=== PATIENT | female | born 1935 | race Caucasian/White ===

== ENCOUNTER 2022-11-30 12:01 | Inpatient (IN) | payer OTHER, MEDICARE ==
[2022-11-30] MEDS ORDERED: Senokot S 8.6-50 MG TAB PO PRN (15:55)
[2022-11-30] MEDS ORDERED: Bisacodyl 5 MG TAB PO PRN (15:55)
[2022-11-30] MEDS ORDERED: Ondansetron ODT 4 MG TAB SL PRN (15:55)
[2022-11-30] MEDS ORDERED: Dextrose 50% Abboject 50 ML SYRINGE SLOW IVP PRN (15:57)
[2022-11-30] MEDS ORDERED: HumaLOG 300 UNITS/3 ML VIAL SC PRN ×2 (15:57)
[2022-11-30] MEDS ORDERED: Glucagon 1 MG/ML KIT IM PRN (15:57)
[2022-11-30] MEDS ORDERED: Artificial Tear Sol 15 ML BOT EA EYE PRN (16:39)
[2022-11-30] MEDS ORDERED: Melatonin 3 MG TAB PO SCH (21:00)
[2022-11-30] MEDS ORDERED: Brimonidine Tartrate 0.2% Ophth Soln 5 ml Bottle R EYE SCH (21:00)
[2022-11-30] MEDS: Calcium Carbonate 600 MG + Vit D TAB PO SCH (23:06)
[2022-11-30] MEDS: Brimonidine Tartrate 0.2% Ophth Soln 5 ml Bottle EA EYE SCH (23:07)
[2022-11-30] MEDS: Acetaminophen 325 MG TAB PO PRN (23:35)
[2022-12-01 05:22] LABS: #Basophils 0.1 thou/uL (0.0-0.2); #Eosinphils 0.2 thou/uL (0.0-0.7); #Monocytes 0.7 thou/uL (0.11-0.59); #Neutrophils 3.4 thou/uL (1.40-6.50); %Basophils 1.2 % (0.0-1.0); %Eosinophils 3.9 % (0.0-10.0); %Lymphocytes 18.5 % (21.0-51.0); %Monocytes 13.6 % (0.0-10.0); %Neutrophils 62.8 % (42.0-75.0); Hematocrit 38.4 % (36.0-47.0); Mean Corpuscular Hemoglobin 33.4 pg (27.0-31.0); Mean Corpuscular Volume 98.4 fl (78.0-98.0); Mean Platelet Volume 8.3 fL (7.4-10.4); Platelet Count 183 10x3/uL (130-400); RBC Distribution Width 11.7 % (11.5-14.5); White Blood Cell (WBC) Count 5.4 10x3/uL (4.8-10.8)
[2022-12-01 05:41] LABS: ALT (SGPT) 50 U/L (8-55); AST (SGOT) 46 U/L (5-34); Albumin 3.4 g/dL (3.4-4.8); Alkaline Phosphatase 108 U/L (40-110); Anion Gap 12 mmol/L (10-20); BUN (Urea Nitrogen) 13 mg/dL (9.8-20.1); Bilirubin, Total 0.8 mg/dL (0.2-1.2); Calc. Creatinine Clearance 44 mL/min (70-130); Calcium 9.4 mg/dL (7.8-10.44); Carbon Dioxide 27 mmol/L (23-31); Chloride 97 mmol/L (98-107); Estimated GFR 83; Globulin 2.6 g/dL (2.4-3.5); Glucose 103 mg/dL (83-110); Potassium 4.4 mmol/L (3.5-5.1); Sodium 132 mmol/L (136-145)
[2022-12-01] MEDS ORDERED: Fish Oil 1,000 MG CAP PO SCH (09:00)
[2022-12-01] MEDS ORDERED: Aspirin 81 mg Enteric Coated Tablet PO SCH (09:00)
[2022-12-01] MEDS: Spironolactone 25 MG TAB PO SCH (09:08)
[2022-12-01] MEDS: Calcium Carbonate 600 MG + Vit D TAB PO SCH ×2 (09:11→18:16)
[2022-12-01] MEDS: Famotidine 20 MG TAB PO SCH (09:13)
[2022-12-01] MEDS: Losartan 25 MG TAB PO SCH (09:14)
[2022-12-01] MEDS: Brimonidine Tartrate 0.2% Ophth Soln 5 ml Bottle EA EYE SCH ×2 (09:18→15:20)
[2022-12-01] MEDS ORDERED: Melatonin 3 MG TAB PO PRN (10:27)
[2022-12-01] MEDS: Acetaminophen 325 MG TAB PO PRN (12:25)
[2022-12-01] MEDS: Fish Oil 1,000 MG CAP PO SCH (20:32)
[2022-12-01] MEDS: CALCIUM PO SCH (20:41)
[2022-12-01] MEDS: ZIOPTAN 0.0015% EA EYE SCH (20:41)
[2022-12-01] MEDS: [UNRECOGNIZED DRUG - OTHER] PO SCH (20:41)
[2022-12-01] MEDS: [UNRECOGNIZED DRUG - OTHER] PO SCH (20:41)
[2022-12-01] MEDS: GLUCOSAMINE SULFATE 1000 MG PO SCH (20:41)
[2022-12-01] MEDS: MULTIVITAMIN PO SCH (20:41)
[2022-12-01] MEDS: EYE EA EYE SCH (20:41)
[2022-12-02 06:01] VITALS: BMI 17.5
[2022-12-02] MEDS: Spironolactone 25 MG TAB PO SCH (09:16)
[2022-12-02] MEDS: Losartan 25 MG TAB PO SCH (09:17)
[2022-12-02] MEDS: Famotidine 20 MG TAB PO SCH (09:17)
[2022-12-02] MEDS: Brimonidine Tartrate 0.2% Ophth Soln 5 ml Bottle EA EYE SCH (09:18)
[2022-12-02] MEDS: CALCIUM PO SCH ×2 (09:20→20:37)
[2022-12-02] MEDS: [UNRECOGNIZED DRUG - OTHER] PO SCH ×2 (09:20→20:37)
[2022-12-02] MEDS: GLUCOSAMINE SULFATE 1000 MG PO SCH ×2 (09:21→20:37)
[2022-12-02] MEDS: Polyethylene Glycol 3350 17 GM Packet PO PRN (15:40)
[2022-12-02] MEDS: Fish Oil 1,000 MG CAP PO SCH (20:34)
[2022-12-02] MEDS: MULTIVITAMIN PO SCH (20:37)
[2022-12-02] MEDS: [UNRECOGNIZED DRUG - OTHER] PO SCH (20:37)
[2022-12-02] MEDS: EYE EA EYE SCH (20:37)
[2022-12-02] MEDS: ZIOPTAN 0.0015% EA EYE SCH (20:37)
[2022-12-02] MEDS: Acetaminophen 325 MG TAB PO PRN (20:52)
[2022-12-03] MEDS: Acetaminophen 325 MG TAB PO PRN ×2 (08:23→20:34)
[2022-12-03] MEDS: Famotidine 20 MG TAB PO SCH (08:23)
[2022-12-03] MEDS: Aspirin 81 mg Enteric Coated Tablet PO SCH (08:23)
[2022-12-03] MEDS: Spironolactone 25 MG TAB PO SCH (08:23)
[2022-12-03] MEDS: Losartan 25 MG TAB PO SCH (08:23)
[2022-12-03] MEDS: Polyethylene Glycol 3350 17 GM Packet PO PRN (08:27)
[2022-12-03] MEDS: CALCIUM PO SCH ×2 (08:29→20:35)
[2022-12-03] MEDS: [UNRECOGNIZED DRUG - OTHER] PO SCH ×2 (08:29→20:35)
[2022-12-03] MEDS: Brimonidine Tartrate 0.2% Ophth Soln 5 ml Bottle EA EYE SCH (08:34)
[2022-12-03] MEDS: GLUCOSAMINE SULFATE 1000 MG PO SCH ×2 (10:22→20:36)
[2022-12-03] MEDS: Fish Oil 1,000 MG CAP PO SCH (20:34)
[2022-12-03] MEDS: MULTIVITAMIN PO SCH (20:36)
[2022-12-03] MEDS: [UNRECOGNIZED DRUG - OTHER] PO SCH (20:36)
[2022-12-03] MEDS: ZIOPTAN 0.0015% EA EYE SCH (20:36)
[2022-12-03] MEDS: EYE EA EYE SCH (20:36)
[2022-12-04] MEDS: Brimonidine Tartrate 0.2% Ophth Soln 5 ml Bottle EA EYE SCH (08:57)
[2022-12-04] MEDS: Spironolactone 25 MG TAB PO SCH (08:58)
[2022-12-04] MEDS: Losartan 25 MG TAB PO SCH (08:59)
[2022-12-04] MEDS: Famotidine 20 MG TAB PO SCH (08:59)
[2022-12-04] MEDS: [UNRECOGNIZED DRUG - OTHER] PO SCH ×2 (09:00→21:06)
[2022-12-04] MEDS: CALCIUM PO SCH ×2 (09:00→21:06)
[2022-12-04] MEDS: GLUCOSAMINE SULFATE 1000 MG PO SCH ×2 (09:01→21:06)
[2022-12-04] MEDS: Fish Oil 1,000 MG CAP PO SCH (21:04)
[2022-12-04] MEDS: Acetaminophen 325 MG TAB PO PRN (21:04)
[2022-12-04] MEDS: EYE EA EYE SCH (21:05)
[2022-12-04] MEDS: ZIOPTAN 0.0015% EA EYE SCH (21:05)
[2022-12-04] MEDS: MULTIVITAMIN PO SCH (21:06)
[2022-12-04] MEDS: [UNRECOGNIZED DRUG - OTHER] PO SCH (21:06)
[2022-12-05] MEDS: Acetaminophen 325 MG TAB PO PRN ×2 (09:02→17:17)
[2022-12-05] MEDS: Famotidine 20 MG TAB PO SCH (09:03)
[2022-12-05] MEDS: Aspirin 81 mg Enteric Coated Tablet PO SCH (09:03)
[2022-12-05] MEDS: Losartan 25 MG TAB PO SCH (09:03)
[2022-12-05] MEDS: Spironolactone 25 MG TAB PO SCH (09:04)
[2022-12-05] MEDS: Brimonidine Tartrate 0.2% Ophth Soln 5 ml Bottle EA EYE SCH (09:09)
[2022-12-05] MEDS: CALCIUM PO SCH ×2 (09:10→21:07)
[2022-12-05] MEDS: [UNRECOGNIZED DRUG - OTHER] PO SCH ×2 (09:10→21:07)
[2022-12-05] MEDS: GLUCOSAMINE SULFATE 1000 MG PO SCH ×2 (09:10→21:07)
[2022-12-05] MEDS: Fish Oil 1,000 MG CAP PO SCH (21:07)
[2022-12-05] MEDS: MULTIVITAMIN PO SCH (21:07)
[2022-12-05] MEDS: [UNRECOGNIZED DRUG - OTHER] PO SCH (21:07)
[2022-12-05] MEDS: EYE EA EYE SCH (21:07)
[2022-12-05] MEDS: ZIOPTAN 0.0015% EA EYE SCH (21:07)
[2022-12-06] MEDS: Brimonidine Tartrate 0.2% Ophth Soln 5 ml Bottle EA EYE SCH (08:25)
[2022-12-06] MEDS: Aspirin 81 mg Enteric Coated Tablet PO SCH (08:26)
[2022-12-06] MEDS: Losartan 25 MG TAB PO SCH (08:26)
[2022-12-06] MEDS: Spironolactone 25 MG TAB PO SCH (08:27)
[2022-12-06] MEDS: Famotidine 20 MG TAB PO SCH (08:27)
[2022-12-06] MEDS: CALCIUM PO SCH ×2 (08:32→20:47)
[2022-12-06] MEDS: [UNRECOGNIZED DRUG - OTHER] PO SCH ×2 (08:32→20:47)
[2022-12-06] MEDS: GLUCOSAMINE SULFATE 1000 MG PO SCH ×2 (08:34→20:47)
[2022-12-06] MEDS: Acetaminophen 325 MG TAB PO PRN (11:01)
[2022-12-06] MEDS: Fish Oil 1,000 MG CAP PO SCH (20:45)
[2022-12-06] MEDS: MULTIVITAMIN PO SCH (20:48)
[2022-12-06] MEDS: [UNRECOGNIZED DRUG - OTHER] PO SCH (20:48)
[2022-12-06] MEDS: ZIOPTAN 0.0015% EA EYE SCH (20:51)
[2022-12-06] MEDS: EYE EA EYE SCH (20:51)
[2022-12-07 06:07] LABS: Anion Gap 13 mmol/L (10-20); BUN (Urea Nitrogen) 18 mg/dL (9.8-20.1); Calc. Creatinine Clearance 43 mL/min (70-130); Calcium 9.7 mg/dL (7.8-10.44); Carbon Dioxide 26 mmol/L (23-31); Chloride 98 mmol/L (98-107); Estimated GFR 79; Glucose 100 mg/dL (83-110); Potassium 4.4 mmol/L (3.5-5.1); Sodium 133 mmol/L (136-145)
[2022-12-07 07:22] VITALS: BP 138/58; TEMP 97
[2022-12-07 07:28] LABS: #Basophils 0.1 thou/uL (0.0-0.2); #Eosinphils 0.2 thou/uL (0.0-0.7); #Lymphocytes 1.4 thou/uL (1.20-3.40); #Monocytes 0.6 thou/uL (0.11-0.59); #Neutrophils 4.3 thou/uL (1.40-6.50); %Basophils 1.4 % (0.0-1.0); %Lymphocytes 21.5 % (21.0-51.0); %Monocytes 9.1 % (0.0-10.0); Hematocrit 40.1 % (36.0-47.0); Hemoglobin 13.8 g/dL (12.0-16.0); Mean Corpuscular HGB CONC 34.3 g/dL (32.0-36.0); Mean Corpuscular Hemoglobin 33.6 pg (27.0-31.0); Mean Platelet Volume 7.4 fL (7.4-10.4); Platelet Count 296 10x3/uL (130-400); RBC Distribution Width 11.6 % (11.5-14.5); White Blood Cell (WBC) Count 6.7 10x3/uL (4.8-10.8)
[2022-12-07] MEDS: Acetaminophen 325 MG TAB PO PRN (07:39)
[2022-12-07] MEDS: Spironolactone 25 MG TAB PO SCH (07:40)
[2022-12-07] MEDS: Losartan 25 MG TAB PO SCH (07:41)
[2022-12-07] MEDS: Famotidine 20 MG TAB PO SCH (07:42)
[2022-12-07] MEDS: Brimonidine Tartrate 0.2% Ophth Soln 5 ml Bottle EA EYE SCH (07:43)
[2022-12-07] MEDS: [UNRECOGNIZED DRUG - OTHER] PO SCH (07:46)
[2022-12-07] MEDS: CALCIUM PO SCH (07:46)
[2022-12-07] MEDS: GLUCOSAMINE SULFATE 1000 MG PO SCH (07:48)
== END 2022-12-07 16:01 | disposition home or self-care (01) | DRG 560 ==
LOC: NAV ACUTE 20:31 → UNDOADMIN 20:31
PROVIDERS: ADMIT Family Medicine; ATTEND Family Medicine
DX: S32.502D Unspecified fracture of left pubis, subsequent encounter for fracture with routine healing (principal); E87.1 Hypo-osmolality and hyponatremia; R53.81 Other malaise; I10 Essential (primary) hypertension; E78.5 Hyperlipidemia, unspecified; H40.9 Unspecified glaucoma; E11.9 Type 2 diabetes mellitus without complications; W18.30XD Fall on same level, unspecified, subsequent encounter; Z98.41 Cataract extraction status, right eye; Z98.42 Cataract extraction status, left eye; Z80.0 Family history of malignant neoplasm of digestive organs; Z88.8 Allergy status to other drugs, medicaments and biological substances
CPT/HCPCS: 36415; 36416; 80048; 80053; 85025; J1650; J1815